=== PATIENT | male | born 1990 | race Caucasian/White ===

== ENCOUNTER 2019-01-15 15:43 | Inpatient (IN) | payer MEDICAID ==
[~2019-01-15] VITALS: Ht 188 cm; Wt 59.0 kg
[2019-01-15] VITALS (17 sets, daily range): BP systolic 120–151; BP diastolic 63–103
--- NOTE | 2019-01-15 15:49 | NUR ---
BIB RA 70 FROM HOME, ABDOMINAL PAIN AND BLOOD SUGAR IN THE 500'S, ALCOHOL BINGE X 2 DAYS, TACHYCARDIC. TO ER BED 08, HOOKED TO MONITOR, CHANGED TO GOWN, PROVIDED W WARM BLANKET, STARTED IVP AT LH 20G.
--- NOTE | 2019-01-15 15:54 | NUR ---
DR LIVINGSTON AT BEDSIDE
[2019-01-15] MEDS ORDERED: IV NS 0.9% 1,000 ML BAG IV ONE (16:00)
[2019-01-15] MEDS ORDERED: ONDANSETRON HCL/PF 4 MG/2 ML VIAL IVP ONE (16:00)
[2019-01-15] MEDS ORDERED: ONDANSETRON HCL/PF 4 MG/2 ML VIAL ONE ×2 (16:16→17:28)
[2019-01-15 16:20] LABS: APPEARANCE,URINE Clear (CLEAR); BILIRUBIN,URINE MODERATE (NEGATIVE); BLOOD, URINE Moderate Ery/uL (NEGATIVE); COLOR,URINE Yellow (YELLOW); KETONES,URINE >=160 (NEGATIVE); LEUKOCYTE ESTERASE ,URINE Negative (NEGATIVE); NITRITE, URINE Negative (NEGATIVE); PROTEIN,URINE >=300 mg/dl (NEGATIVE); UGLUCOSE 500 MG/DL mg/dL (NEGATIVE); UROBILINOGEN,URINE 0.2 EU/dL (0.2)
--- NOTE | 2019-01-15 16:20 | NUR ---
CUPOLA MELTING SUPERVISOR AT BEDSIDE
[2019-01-15 16:28] LABS: BASOPHILS # (AUTO) 0.2 /CMM (0.0-0.2); HEMATOCRIT 58 % (39-51); HEMOGLOBIN 18.5 g/dL (13.5-17.5); LYMPHOCYTES # (AUTO) 0.6 /CMM (0.8-4.8); LYMPHOCYTES % (AUTO) 3.1 % (20.0-44.0); MEAN CORPUSCULAR HGB CONC 32 g/dl (31.0-36.0); MEAN CORPUSCULAR VOLUME 99 fL (80-96); MONOCYTES # (AUTO) 1.3 /CMM (0.1-1.30); MONOCYTES % (AUTO) 6.2 % (2.0-12.0); NEUTROPHILS # (AUTO) 18.2 /CMM (1.8-8.9); NEUTROPHILS % (AUTO) 89.7 % (43.0-81.0); PLATELET COUNT (AUTO) 331 /CMM (150-450); RED BLOOD CELL COUNT(AUTO) 5.85 MIL/uL (4.5-6.0); WHITE BLOOD COUNT (AUTO) 20.3 K/uL (4.3-11.0)
[2019-01-15 16:39] LABS: BACTERIA,URINE Few /HPF (None Seen)
[2019-01-15 16:40] LABS: SQUAMOUS EPITHELIAL CELL,UR Few /HPF (None Seen)
[2019-01-15 16:41] LABS: ALANINE AMINOTRANSFERASE 132 U/L (12-78); ALBUMIN 4.4 g/dL (3.4-5.0); ALKALINE PHOSPHATASE 137 U/L (46-116); ASPARTATE AMINOTRANSFERASE 83 U/L (15-37); BILIRUBIN,DIRECT 0.2 mg/dL (0.0-0.2); CREATININE 2.1 mg/dL (0.6-1.3); LIPASE 413 U/L (73-393); POTASSIUM 4.6 mmol/L (3.5-5.1); SODIUM SERUM 126 mmol/L (136-145); TOTAL PROTEIN, SERUM 8.9 g/dL (6.4-8.2); UREA NITROGEN, BLOOD 32 mg/dL (7-18)
[2019-01-15] MEDS ORDERED: INSU100V3 IJ (16:46)
[2019-01-15] MEDS ORDERED: INSU100I26 SQ (16:46)
[2019-01-15 16:48] LABS: CARBON DIOXIDE 4 mmol/L (21-32); CHLORIDE 76 mmol/L (98-107); GLUCOSE 730 mg/dL (74-106)
[2019-01-15] MEDS ORDERED: INSULIN REGULAR, HUMAN 100 UNIT in IV NS 0.9% 99 ML IV PRN ×2 (17:00)
--- NOTE | 2019-01-15 17:04 | NUR ---
ICU 255
--- NOTE | 2019-01-15 17:20 | NUR ---
REPORT GIVEN TO JOVANNY OF ICU
--- NOTE | 2019-01-15 17:22 | NUR ---
MIDLINE NURSE AT BEDSIDE
--- NOTE | 2019-01-15 17:25 | NUR ---
DR TURPIN AT BEDSIDE, RECEIVED VERBAL ORDER TO START INSULIN DRIP AT 11U/HR. CARRIED OUT
[2019-01-15] MEDS ORDERED: ONDANSETRON HCL/PF - ER 4 MG/2 ML VIAL IV ONE (17:30)
--- NOTE | 2019-01-15 17:30 | NUR ---
DEPUTY COURT CLERK OPENING NOTE RECEIVED REPORT FROM DONNA HERNANDEZ FROM ER.PATIENT RECEIVED TO UNIT VIA GURNEY,TACHYPNEIC,C/O ABDOMINAL TIGHTNESS FROM ADMISSION.IV LINES ARE INTACT AND PATENT.ON MONITOR WITH ST.ON RA SATURATING 96%.SAFETY MEASURES IN PLACE.ON INSULIN DRIP 11 UNITS/HR.SRX3.WILL CONTINUE TO MONITOR.
[2019-01-15 18:11] LABS: BAND % (MANUAL) 9 % (0.0-5.0); LYMPHOCYTES % (MANUAL) 9 % (16-48); MONOCYTES % (MANUAL) 9 % (0-11.0); NEUTROPHILS % (MANUAL) 73 (42-76)
[2019-01-15] MEDS ORDERED: DEXTROSE 50%-WATER 50 ML DISP.SYRIN IV PRN (18:30)
[2019-01-15] MEDS ORDERED: ACETAMINOPHEN 325 MG TABLET PO PRN (18:30)
[2019-01-15] MEDS ORDERED: INSULIN REGULAR, HUMAN 100 UNIT/ML 3 ML VIAL SQ PRN (18:30)
[2019-01-15] MEDS ORDERED: Z GUARD REMEDY 2 OZ OINT TP PRN (18:30)
[2019-01-15] MEDS ORDERED: ZOLPIDEM TARTRATE 5 MG TABLET PO PRN (18:30)
[2019-01-15] MEDS ORDERED: MAGNESIUM HYDROXIDE 30 ML UDC PO PRN (18:30)
[2019-01-15] MEDS ORDERED: *INSULIN REGULAR(HUMULIN R)HUM 100 UNIT/ML VIAL SQ PRN (18:30)
[2019-01-15] MEDS: INSULIN REGULAR, HUMAN 100 UNIT in IV NS 0.9% 99 ML IV PRN ×2 (18:51)
[2019-01-15] MEDS: IV NS 0.9% 1,000 ML IV PRN ×2 (19:34→19:43)
--- NOTE | 2019-01-15 19:52 | NUR ---
MOVING PICTURE PRODUCER CLOSING NOTE ENDORSED TO PM NURSE FOR KYLE.PATIENT ON INSULIN DRIP 9 UNITS/HR.GOT NEW ORDERS FROM .
--- NOTE | 2019-01-15 20:00 | NUR ---
RN INITIAL NOTE RECEIVED REPORT FROM JOVANNY HERNANDEZ FROM. RECEIVED PT IN BED ,TACHYPNEIC, A&O X4,IV LINES ARE INTACT AND PATENT.ON MONITOR WITH ST.ON RA SATURATING 96%. SAFETY MEASURES IN PLACE.ON INSULIN DRIP 9 UNITS/HR. SRX2.WILL CONTINUE TO MONITOR.
[2019-01-15] MEDS: BLOOD SUGAR DIAGNOSTIC 1 EACH STRIP IN SCH ×4 (20:17→23:25)
[2019-01-15 20:48] LABS: CALCIUM, SERUM 7.9 mg/dL (8.5-10.1); CREATININE 1.4 mg/dL (0.6-1.3); POTASSIUM 3.7 mmol/L (3.5-5.1)
[2019-01-15] MEDS: MAG HYDROX/AL HYDROX/SIMETH 30 ML UDC PO PRN (21:40)
[2019-01-15] MEDS ORDERED: BLOOD SUGAR DIAGNOSTIC 1 EACH STRIP VI SCH (22:00)
[2019-01-15] MEDS ORDERED: KCL IV ONE (23:29)
[2019-01-15] MEDS ORDERED: [UNRECOGNIZED DRUG - OTHER] IV ONE (23:29)
[2019-01-15] MEDS ORDERED: IV PREMIX D5 1/2NS + KCL 1,000 ML IV ONE (23:39)
[2019-01-15] MEDS: IV PREMIX D5 1/2NS + KCL 1,000 ML IV PRN (23:52)
[2019-01-16] VITALS (34 sets, daily range): BP systolic 127–153; BP diastolic 70–108
[2019-01-16] MEDS: BLOOD SUGAR DIAGNOSTIC 1 EACH STRIP IN SCH ×13 (00:35→13:22)
[2019-01-16 01:05] LABS: CALCIUM, SERUM 8.1 mg/dL (8.5-10.1); CREATININE 1.1 mg/dL (0.6-1.3); POTASSIUM 3.7 mmol/L (3.5-5.1)
[2019-01-16] MEDS: ONDANSETRON HCL/PF 4 MG/2 ML VIAL IVP PRN ×3 (01:13→12:05)
[2019-01-16 04:50] LABS: BASOPHILS % (AUTO) 0.2 % (0.0-2.0); HEMATOCRIT 47 % (39-51); HEMOGLOBIN 16.4 g/dL (13.5-17.5); LYMPHOCYTES # (AUTO) 0.9 /CMM (0.8-4.8); LYMPHOCYTES % (AUTO) 8.5 % (20.0-44.0); MEAN CORPUSCULAR HGB CONC 35 g/dl (31.0-36.0); MEAN CORPUSCULAR VOLUME 90 fL (80-96); MONOCYTES # (AUTO) 0.7 /CMM (0.1-1.30); MONOCYTES % (AUTO) 6.7 % (2.0-12.0); NEUTROPHILS # (AUTO) 9.2 /CMM (1.8-8.9); NEUTROPHILS % (AUTO) 84.6 % (43.0-81.0); PLATELET COUNT (AUTO) 198 /CMM (150-450); WHITE BLOOD COUNT (AUTO) 10.9 K/uL (4.3-11.0)
[2019-01-16 04:59] LABS: CALCIUM, SERUM 8.6 mg/dL (8.5-10.1); CREATININE 1.1 mg/dL (0.6-1.3); MAGNESIUM 2.2 mg/dL (1.8-2.4); PHOSPHORUS 1.2 mg/dL (2.5-4.9); POTASSIUM 3.5 mmol/L (3.5-5.1)
--- NOTE | 2019-01-16 07:00 | NUR ---
RN CLOSING NOTE ENDORSED TO AM NURSE FOR KYLE.PATIENT ON INSULIN DRIP 3 UNITS/HR. IV FLUIDS @ 100MLS/HR. PT REMAINED STABLE OVER NIGHT.
--- NOTE | 2019-01-16 07:30 | NUR ---
LEADERSHIP PROGRAM ASSOCIATE OPENING NOTE RECEIVED REPORT FROM PM NURSE.AXOX4.NO SOB NO DISTRESS NOTED.C/O PAIN AND NAUSEA.IV LINES ARE INTACT AND PATENT.ON TELE MONITOR WITH SR HR 94.ON RA SATURATING 98%.SAFETY MEASURES IN PLACE.ON INSULIN DRIP 3 UNITS/HR.SRX3.CALL LIGHT IN REACH.WILL CONTINUE TO MONITOR.
[2019-01-16] MEDS: HYDROCODONE/APAP 5/325MG 1 EACH TABLET PO PRN ×3 (07:31→20:45)
[2019-01-16 08:24] LABS: CALCIUM, SERUM 8.4 mg/dL (8.5-10.1); POTASSIUM 3.5 mmol/L (3.5-5.1)
--- NOTE | 2019-01-16 10:00 | NUR ---
BELL ATTENDANT NOTE SEEN BY ,UPDATED ABOUT PATIENT CONDITION WITH LABS.WAITING FOR BMP RESULT FOR 1200.WILL F/U
[2019-01-16] MEDS: INSULIN REGULAR, HUMAN 100 UNIT in IV NS 0.9% 99 ML IV PRN ×2 (10:23)
[2019-01-16] MEDS: IV PREMIX D5 1/2NS + KCL 1,000 ML IV PRN (10:24)
[2019-01-16 12:14] LABS: CALCIUM, SERUM 8.3 mg/dL (8.5-10.1); CREATININE 0.9 mg/dL (0.6-1.3); POTASSIUM 3.5 mmol/L (3.5-5.1)
--- NOTE | 2019-01-16 13:51 | NUR ---
WELL TENDER NOTE RELAYED BMP RESULT TO .GOT ORDER TO STOP INSULIN CONTINUE WITH MODERATE ISS AC HS.CONTINUE IVF.PATENT HAS POOR PO INTAKE. AND NAUSEA.
[2019-01-16] MEDS ORDERED: DEXTROSE 50%-WATER 50 ML DISP.SYRIN IV PRN (14:00)
[2019-01-16] MEDS: Sodium Phosphate 7.5 MMOL in IV D5W 100 ML IV SCH ×2 (16:01→19:04)
[2019-01-16] MEDS: MAG HYDROX/AL HYDROX/SIMETH 30 ML UDC PO PRN (16:14)
[2019-01-16] MEDS: MORPHINE SULFATE INJ 2 MG/ML DISP.SYRIN IV PRN (16:28)
--- NOTE | 2019-01-16 16:35 | NUR ---
ROPING TENDER NOTE PATIENT C/O CHEST PAIN AND TIGHTNESS WITH ABDOMINAL PAIN. MADE AWARE.RECOMMENDED EKG AND TROP.NNO.SAID ITS PAIN FROM VOMITING FOR 2 DAYS.WILL CONTINUE TO MONITOR.
[2019-01-16] MEDS: BLOOD SUGAR DIAGNOSTIC 1 EACH STRIP VI SCH ×2 (17:04→22:00)
[2019-01-16] MEDS: INSULIN REGULAR, HUMAN 100 UNIT/ML 3 ML VIAL SQ PRN (17:06)
--- NOTE | 2019-01-16 18:50 | NUR ---
SOCIOLOGY PROFESSOR CLOSING NOTE PATIENT IN BED.AXOX4.ON RA.NO SOB NO DISTRESS NOTED.PRN PAIN MEDS GIVEN.IV LINES ARE INTACT AND PATENT.ON TELE MONITOR WITH SR HR 92.ON RA SATURATING 97%.SAFETY MEASURES IN PLACE.SRX3.CALL LIGHT IN REACH.WILL ENDORSE TO PM NURSE FOR KYLE.
--- NOTE | 2019-01-16 19:52 | NUR ---
CHIEF OF STAFF OPENING NOTES RECEIVED REPORT FROM JOVANNY HERNANDEZ. PATIENT A/A/O X4, ABLE TO VERBALIZE NEEDS. BREATHING EVEN & UNLABORED, TOLERATING ROOM AIR. DENIES ANY SOB OR DIFFICULTY BREATHING. ON TELE W/ SINUS RHYTHM, SINUS TACH, HR 90-LOW 100S. C/O MEDIAL/LEFT SIDE NON-RADIATING CHEST PAIN W/ PAIN LEVEL 6/10. PAIN MED TO BE GIVEN. DENIES ANY HEADACHE, NAUSEA OR VOMITING @ THIS TIME. LEFT UPPER ARM MIDLINE, LEFT HAND IV #20 & RIGHT AC IV #20 ALL INTACT & PATENT W/ DRESSING CDI & IVF D5 1/2 NS W/ 20 MEQ OF KCL INFUSING WELL @ 100 ML/HR. ABLE TO USE URINAL & MOVE INDEPENDENTLY IN BED. SAFETY MEASURES STILL MAINTAINED W/ SIDE RAILS UP & BED ALARM ON. CALL LIGHT PLACED WITHIN REACH & INSTRUCTED TO CALL FOR ASSISTANCE. WILL CONTINUE TO MONITOR.
--- NOTE | 2019-01-16 20:45 | NUR ---
YOUTH PROBATION OFFICER NOTES PATIENT C/O LEFT/MEDIAL NON-RADIATING CHEST PAIN W/ PAIN LEVEL 6/10. PRN NORCO 5-325 GIVEN.
--- NOTE | 2019-01-16 22:00 | NUR ---
PL SQL PROGRAMMER NOTES PATIENT REASSESSED AFTER PAIN MED GIVEN. PAIN LEVEL 0/10 NOW & RESTING COMFORTABLY.
[2019-01-16] MEDS: *INSULIN REGULAR(HUMULIN R)HUM 100 UNIT/ML VIAL SQ PRN (22:02)
--- NOTE | 2019-01-16 22:30 | NUR ---
RAIL SIGNAL DESIGNER NOTES SPOKE TO HAWA GUZMAN REGARDING CLARIFICATION OF ORDER OF IVF D5 1/2 NS W/ 20 MEQ KCL TO GIVE PRN IF BS <250 & ON INSULIN DRIP. PER HAWA OK TO CONTINUE FLUIDS PREVIOUSLY ORDERED.
[2019-01-17] VITALS (17 sets, daily range): BP systolic 105–139; BP diastolic 64–94
[2019-01-17] MEDS ORDERED: IV PREMIX D5 1/2NS + KCL 1,000 ML IV ONE (00:05)
--- NOTE | 2019-01-17 01:45 | NUR ---
LABORATORY COURIER NOTES PATIENT C/O AGAIN OF NON-RADIATING LEFT/MEDIAL CHEST PAIN W/ PAIN LEVEL 8/10. NO HEADACHE OR N/V ASSOCIATED. PRN IV MORPHINE GIVEN.
[2019-01-17] MEDS: MORPHINE SULFATE INJ 2 MG/ML DISP.SYRIN IV PRN ×4 (01:46→19:44)
[2019-01-17] MEDS: IV PREMIX D5 1/2NS + KCL 1,000 ML IV PRN (01:46)
--- NOTE | 2019-01-17 02:50 | NUR ---
LARGE SHEETFED PRESS OPERATOR NOTES PAIN LEVEL DECREASED TO 1-2/10 AFTER MORPHINE ADMINISTRATION. RESTING COMFORTABLY IN BED. WILL CONTINUE TO MONITOR CLOSELY.
[2019-01-17 04:52] LABS: CALCIUM, SERUM 8.7 mg/dL (8.5-10.1); CREATININE 0.6 mg/dL (0.6-1.3); PHOSPHORUS 1.6 mg/dL (2.5-4.9); POTASSIUM 3.4 mmol/L (3.5-5.1)
[2019-01-17] MEDS: HYDROCODONE/APAP 5/325MG 1 EACH TABLET PO PRN ×2 (06:01→11:29)
--- NOTE | 2019-01-17 07:15 | NUR ---
MACHINE HEEL BUILDER INITIAL NOTES: Rec'd pt awake on bed, not in any distress, A/O x 4. On R/A w/ no SOB. SR on telemonitor. IV line access patent & intact w/ no s/sx of infection/infiltration noted. Safety precaution in place w/ bed in lowest & locked pos. Call light placed w/in reach. Will cont to monitor & attend pt needs.
--- NOTE | 2019-01-17 07:26 | NUR ---
BREAD WRAPPER CLOSING NOTES PATIENT AWAKE & RESTING COMFORTABLY IN BED. NO SIGNIFICANT EVENTS OVERNIGHT. ENDORSED KYLE TO AM RN.
[2019-01-17] MEDS: BLOOD SUGAR DIAGNOSTIC 1 EACH STRIP VI SCH ×4 (08:04→21:59)
[2019-01-17] MEDS: INSULIN REGULAR, HUMAN 100 UNIT/ML 3 ML VIAL SQ PRN ×3 (08:06→17:35)
[2019-01-17] MEDS ORDERED: Magnesium 1GM/D5W 100ML PREMIX 100 ML IV SCH (09:00)
[2019-01-17] MEDS ORDERED: POTASSIUM CHLORIDE 20 MEQ TAB.PRT.SR PO ONE (09:00)
--- NOTE | 2019-01-17 09:00 | NUR ---
Pt seen & examined by Dr. Courtney, updated about pt status. Made him aware that pt unable to tolerate PO K & if he still wants to continue current IVF. Per MD, continue IVF of D5 1/2 NS w/ 20 meqs KCL x 100 cc/hr even if pt is off insulin drip and he will talk to the pt re: K oral.
[2019-01-17] MEDS ORDERED: INSULIN GLARGINE, 100 UNIT/ML CARTRIDGE SQ SCH (10:00)
--- NOTE | 2019-01-17 11:47 | NUR ---
Dr. Courtney made aware that pt unable to tolerate PO K replacement & BS 314 (currently on D5 1/2NS + 20 meqs KCl x 100 cc/hr) & if okay to downgrade. Per MD, may change IVF to NS + 20 meqs KCl x 100 cc/hr, can give KCL IV 40 meqs x 1, BMP 1hr post infusion & may go to med surg unit.
[2019-01-17] MEDS ORDERED: POTASSIUM CHLORIDE 10 MEQ/50 ML PREMIXED IVPB FOR PERIPHERAL LINE IV ONE (12:00)
[2019-01-17] MEDS: POTASSIUM CL. PREMIX PERIPHER. 50 ML IV SCH ×4 (12:06→15:15)
[2019-01-17] MEDS ORDERED: Sodium Phosphate 15 MMOL in IV D5W 250 ML IV ONE (13:00)
[2019-01-17] MEDS: Potassium Chloride 20 MEQ in IV NS 0.9% 1,000 ML IV PRN (13:05)
--- NOTE | 2019-01-17 15:40 | NUR ---
OPERATIONS RESEARCH ANALYSTCHIEF DIETITIAN NOTES: Pt transferred to [facility] as ordered. Pt remains A/Ox 4, not in any distress. SR on telemonitor. VS stable. IV line access kept patent & intact w/ no s/sx of infection/infiltration noted. Spoke w/ Mary ECHEVARRIA re: giving DM teaching to pt, said will do it jerad or prior DC. Safety precaution kept in place at all times w/ bed in lowest & locked pos. Call light placed w/in reach. All belongings sent w/ pt. Endorsed to Olga RN for KYLE.
--- NOTE | 2019-01-17 15:50 | NUR ---
CAUSTICISER OPENING NOTES Patient received from ICU, patient in room air, no sob noted, vital signs stable. IV lines patent and intact. patient a/o x 4, and is comfortable. Patient's bed at the lowest setting, call light within reach. Continuing IV meds from ICU.
[2019-01-17 18:54] LABS: CALCIUM, SERUM 8.4 mg/dL (8.5-10.1); CREATININE 0.5 mg/dL (0.6-1.3); POTASSIUM 3.6 mmol/L (3.5-5.1)
--- NOTE | 2019-01-17 18:55 | NUR ---
RN MS CLOSING NOTES Patient remains on room air, no sob noted, patient remains receiving IV NS 0.9% 1000 mL bag of potassium chloride. Another bag waiting to be started after the old one is done per ICU nurse. Blood sugar has been stable at 155 this 1700. Will continue to monitor patient. Bed at the lowest setting, call light within reach. Will give report to MAUREEN HERNANDEZ for KYLE.
[2019-01-17] MEDS ORDERED: PANTOPRAZOLE 40 MG VIAL IV SCH (19:30)
--- NOTE | 2019-01-17 19:35 | NUR ---
RN NOTES RECEIVED PATIENT AWAKE ALERT, RESTING COMFORTABLY WITH TOLERABLE CHEST PAIN AT THIS TIME, REPOSITIONED FOR COMFORT, NO SIGNS OF ACUTE RESPIRATORY OR CARDIAC DISTRESS AT THIS TIME, IV ACCESS INTACT AND PATENT, IV FLUID INFUSING WELL, SAFETY MEASURES IN PLACE, CALL LIGHT WITHIN EASY REACH, ALL NEEDS ATTENDED, WILL CONTINUE TO MONITOR ACCORDINGLY.
--- NOTE | 2019-01-17 19:44 | NUR ---
RN NOTES MORPHINE 2MG IV GIVEN PER MD ORDERED FOR C/O CHEST PAIN 01/02, VITAL SIGNA TAKEN AND RECORDED, BP 134/75;HR71;RR18;SATING 98% ON ROOM AIR. WILL CONTINUE TO MONITOR. SAFETY MEASURES EMPHASIZE, INSTRUCTED PATIENT NOT TO GET OUT OFF BED FOR SAFETY AND USE OF CALL LIGHT WHEN NEEDED.
--- NOTE | 2019-01-17 20:16 | NUR ---
RN NOTES SEEN AND EXAMINED BY MANAGER ANIMATION KACI SPAIN, PATIENT REFUSED XR ESOPHAGRAM AND DENIES DYSPHAGIA AT THIS TIME, KACI SPAIN EXPLAINED THE REASON FOR PROCEDURE AND PROS AND CONS, STILL PATIENT REFUSED THE PROCEDURE AND DENIES ANY DIFFICULTY SWALLOWING. WILL CONTINUE TO MONITOR THROUGHOUT THE SHIFT AND COORDINATE WITH MD. PATIENT RESTING COMFORTABLY AT THIS TIME.
[2019-01-17] MEDS ORDERED: PANTOPRAZOLE 40 MG VIAL ONE (21:14)
[2019-01-17] MEDS: *INSULIN REGULAR(HUMULIN R)HUM 100 UNIT/ML VIAL SQ PRN (22:05)
[2019-01-18] MEDS: Potassium Chloride 20 MEQ in IV NS 0.9% 1,000 ML IV PRN (00:35)
--- NOTE | 2019-01-18 06:39 | NUR ---
RN NOTES ALL NEEDS ATTENDED AND MET, ABLE TO REST AND SLEEP AT INTERVALS, SAFETY MEASURES IN PLACE, CALL LIGHT WITHIN EASY REACH, NO ACUTE SIGNS OF DISTRESS, WILL ENDORSE TO AM NURSE FOR CONTINUITY OF CARE.
[2019-01-18 06:49] LABS: BASOPHILS % (AUTO) 0.3 % (0.0-2.0); EOSINOPHILS % (AUTO) 0.5 % (0.0-6.0); HEMATOCRIT 42 % (39-51); HEMOGLOBIN 14.5 g/dL (13.5-17.5); LYMPHOCYTES # (AUTO) 1.4 /CMM (0.8-4.8); LYMPHOCYTES % (AUTO) 34.9 % (20.0-44.0); MEAN CORPUSCULAR HGB CONC 35 g/dl (31.0-36.0); MEAN CORPUSCULAR VOLUME 91 fL (80-96); MONOCYTES # (AUTO) 0.3 /CMM (0.1-1.30); MONOCYTES % (AUTO) 7.3 % (2.0-12.0); NEUTROPHILS # (AUTO) 2.4 /CMM (1.8-8.9); PLATELET COUNT (AUTO) 144 /CMM (150-450); RED BLOOD CELL COUNT(AUTO) 4.57 MIL/uL (4.5-6.0); WHITE BLOOD COUNT (AUTO) 4.1 K/uL (4.3-11.0)
[2019-01-18] MEDS: BLOOD SUGAR DIAGNOSTIC 1 EACH STRIP VI SCH ×2 (06:51→12:12)
[2019-01-18] MEDS: INSULIN REGULAR, HUMAN 100 UNIT/ML 3 ML VIAL SQ PRN ×2 (06:53→12:18)
[2019-01-18 07:12] LABS: CALCIUM, SERUM 8.4 mg/dL (8.5-10.1); CREATININE 0.5 mg/dL (0.6-1.3); PHOSPHORUS 2.6 mg/dL (2.5-4.9); POTASSIUM 3.8 mmol/L (3.5-5.1)
--- NOTE | 2019-01-18 07:20 | NUR ---
MS RN OPENING NOTE RECEIVED PT IN BED, ALERT AND ORIENTED X4, DENIES CHEST PAIN, SOB, N/V, BREATHING IS EVEN AND UNLABORED ON ROOM AIR. NO ACUTE DISTRESS NOTED AT THIS TIME. LEFT UPPER ARM MIDLINE IS INFUSING ORDERED WITHOUT REDNESS OR SWELLING. PT VERBALIZING DESIRE TO BE DISCHARGED TODAY, INFORMED THAT PRIMARY HOSPITALIST WILL REVIEW AND DISCUSS WITH PATIENT IF HE IS STABLE FOR D/C AND THAT THE NURSE WILL BRING UP PT CONCERNS WELL, PT VERBALIZED AGREEMENT AND UNDERSTANDING. ALL NEEDS ATTENDED TO. BED IS LOCKED AND IN LOWEST POSITION, SIDE RAILS UP X2, BED ALARM ON, CALL LIGHT AND POSSESSIONS WITHIN REACH.
[2019-01-18] MEDS: MORPHINE SULFATE INJ 2 MG/ML DISP.SYRIN IV PRN (08:16)
--- NOTE | 2019-01-18 12:05 | NUR ---
MS RECRUITING INTERN NOTE PT DISCHARGED HOME IN MEDICALLY STABLE CONDITION. PT IS ALERT AND ORIENTED X4, DENIES CHEST PAIN, N/V, BREATHING IS EVEN AND UNLABORED ON ROOM AIR. NO ACUTE DISTRESS NOTED AT THIS TIME. LEFT UPPER ARM MIDLINE, LEFT HAND PERIPHERAL IV, AND RIGHT AC PERIPHERAL IV ALL REMOVED WITH CATHETER TIPS INTACT. DISCHARGE PAPERWORK AND EDUCATION PROVIDE PER PROTOCOL. DISCUSSED DISCHARGE EDUCATION, INSTRUCTIONS, AND DR RECOMMENDATIONS WITH PATIENT AND MOTHER AT THE BEDSIDE. BOTH VERBALIZED AGREEMENT AND UNDERSTANDING. PT STATES HAS HIS OWN PRIMARY CARE PROVIDER WELL A SUPPLY OF ALL REQUIRED HOME MEDICATIONS AND HAS NO FURTHER NEEDS AT THIS TIME. ALL BELONGINGS ACCOUNTED FOR AND LIST SIGNED AND PLACED IN CHART. THE NURSE CLINIC OFFICE MANAGER ACCOMPANIED THE PT TO THE MAIN LOBBY VIA WHEELCHAIR WITHOUT INCIDENT. Addendum: 01/18/19 at 1303 by MARCO A SHORT RN ERROR: PT DISCHARGED AT 1230
--- NOTE | 2019-01-18 12:12 | NUR ---
MS RN NOTE ACCU CHECK AND SLIDING SCALE INSULIN COMPLETED ORDERED, PT PROVIDED WITH SNACKS AND CRANBERRY JUICE. PT STATES HE IS GOING TO EAT A FULL LUNCH WITH HIS MOTHER UPON DISCHARGE. PT SEEN DRINKING ENTIRE CRANBERRY JUICE WELL DIET COKE PROVIDED BY MOTHER.
== END 2019-01-18 12:30 | disposition home or self-care (01) | DRG 469 ==
LOC: ER 15:45 → ICU 17:11 → MED 01-17 15:30
PROVIDERS: ADMIT Internal Medicine; ATTEND Internal Medicine
PROC: B54NZZA Ultrasonography of Left Upper Extremity Veins, Guidance (ICD-10-PCS; principal; 2019-01-15)
PROC: 05HC33Z Insertion of Infusion Device into Left Basilic Vein, Percutaneous Approach (ICD-10-PCS; principal; 2019-01-15)
DX: N17.0 Acute kidney failure with tubular necrosis (principal); E11.10 Type 2 diabetes mellitus with ketoacidosis without coma; K22.6 Gastro-esophageal laceration-hemorrhage syndrome; E86.0 Dehydration; K20.9 Esophagitis, unspecified; D72.829 Elevated white blood cell count, unspecified; Z88.2 Allergy status to sulfonamides; E11.65 Type 2 diabetes mellitus with hyperglycemia; R13.10 Dysphagia, unspecified; K22.2 Esophageal obstruction
CPT/HCPCS: 36415; 71045-TC; 80048-TC; 80076-TC; 81000-TC; 82962-TC; 83690-TC; 83735-TC; 84100-TC; 84484-TC; 85025-TC; 87081-TC; A9563; C9113; G0378; J1815; J2270; J2405; J3475; J3480; J3490; J7030; J7060